=== PATIENT | male | born 2000 | race Caucasian/White ===

== ENCOUNTER 2022-04-06 11:25 | Emergency (ER) | payer MEDICAID ==
[~2022-04-06] VITALS: Ht 172.7 cm; Wt 68.0 kg
[2022-04-06 11:25] VITALS: BP_SYST 122
[2022-04-06] MEDS ORDERED: IBUPROFEN 600 MG TABLET PO ONE (12:15)
[2022-04-06] MEDS ORDERED: IBUP-1969 PO (12:58)
== END 2022-04-06 13:25 | disposition home or self-care (01) ==
LOC: SED 11:25
DX: M94.0 Chondrocostal junction syndrome [Tietze] (principal); R07.89 Other chest pain; J45.909 Unspecified asthma, uncomplicated; Z79.899 Other long term (current) drug therapy
CPT/HCPCS: 71045; 99283